=== PATIENT | male | born 1940 | race Caucasian/White ===

== ENCOUNTER 2023-01-06 06:36 | Day surgery (SDC) | payer MEDICARE, SELFPAY ==
[2022-12-26 14:10] VITALS: BMI 25.6
--- NOTE | 2022-12-27 08:14 | MHC.SHP ---
Pre-Procedural Eval Section A Date of Service: 12/27/22 The patient is an INPATIENT: No Changes since office visit: No Cold of Flu in the past 2 weeks, No New Medical Problems, No Changes in Medication and No Patient answered all questions The History & Physical has been completed within 30 days and I have reviewed it.: Yes Section B Chief Complaint: Age-related nuclear cataract, left eye Allergies: Allergies Allergy/AdvReac Type Severity Reaction Status Date / Time acetaminophen Allergy Unknown nausea and Verified 11/14/17 00:00 [Tylenol-Codeine #3] vomiting codeine [Tylenol-Codeine #3] Allergy Unknown nausea and Verified 11/14/17 00:00 vomiting Plan Diagnosis/Plan: Unchanged I have reviewed the history and physical and performed a pertinent physical examination on my patient. No changes have occurred unless specified. Time Spent With Patient Time: Total time managing care of this patient today ____ minutes.
[2022-12-31 09:08] VITALS: BMI 25.4
--- NOTE | 2023-01-02 12:19 | HO.ANESPROP2 ---
Documented by User: Katerine Rhodes NP 01/02/23 12:19 HPI - Anesthesia Eval Consult details Narrative: 82yo M for Left Cataract Extraction IOL Insertion No previous cataract PMFSH Past Medical History Medical History HTN (hypertension) Osteoarthritis Skin cancer Surgical History Surgical History H/O hernia repair Hx of arthroplasty Hx of carpal tunnel repair Hx of elbow surgery Hx of total knee replacement Social History Social History Are you a primary intensive care unit registered nurse to a significant other at home: No Do you presently have visiting nurse or other home services: No Patient Tobacco Use Status: Never used Tobacco Use of substances other than those prescribed or required for medical reasons: No Have you been hit, kicked, punched, or otherwise hurt by someone within the past year? If so, by whom?: No Advance Directives: No Advance Directives Information Provided: Yes Advance Directives on File: No Recently lost weight without trying: No Nutrition Risks: No Nutritional Risk Meds Allergies Allergy/AdvReac Type Severity Reaction Status Date / Time acetaminophen Allergy Unknown nausea and Verified 11/14/17 00:00 [Tylenol-Codeine #3] vomiting codeine [Tylenol-Codeine #3] Allergy Unknown nausea and Verified 11/14/17 00:00 vomiting Iathozv-CZZ-ZvI Reductase Allergy Rash Verified 12/31/22 08:42 Inhibitor Home Medications Medication Instructions Recorded Confirmed Last Taken Type celecoxib 200 mg capsule 200 mg PO DAILY 12/31/22 12/31/22 Unknown History cholecalciferol (vitamin D3) 25 50 mcg PO DAILY 12/31/22 12/31/22 Unknown History mcg (1,000 unit) capsule (Vitamin D3) lisinopril 20 mg tablet 20 mg PO BEDTIME 12/31/22 12/31/22 Unknown History Exam Exam Date and Time: January 02, 2023 1219 Height,Weight and Vital Signs: Height 5 ft 11.5 in Weight 83.915 kg Assessment and Plan Assessment Anesthesia Assessment: Chart Reviewed Documented by User: Mile Shelby MD 01/06/23 08:49 [facility] Past Medical History Medical History HTN (hypertension) Osteoarthritis Skin cancer Surgical History Surgical History H/O hernia repair Hx of arthroplasty Hx of carpal tunnel repair Hx of elbow surgery Hx of total knee replacement History of Problems with Anesthesia: No Social History Social History Are you a primary intensive care unit registered nurse to a significant other at home: No Do you presently have visiting nurse or other home services: No Patient Tobacco Use Status: Never used Tobacco Use of substances other than those prescribed or required for medical reasons: No Have you been hit, kicked, punched, or otherwise hurt by someone within the past year? If so, by whom?: No Advance Directives: No Advance Directives Information Provided: Yes Advance Directives on File: No Recently lost weight without trying: No Nutrition Risks: No Nutritional Risk Meds Allergies Allergy/AdvReac Type Severity Reaction Status Date / Time acetaminophen Allergy Unknown nausea and Verified 11/14/17 00:00 [Tylenol-Codeine #3] vomiting codeine [Tylenol-Codeine #3] Allergy Unknown nausea and Verified 11/14/17 00:00 vomiting Cmlalya-NHD-KaI Reductase Allergy Rash Verified 12/31/22 08:42 Inhibitor Home Medications Medication Instructions Recorded Confirmed Last Taken Type celecoxib 200 mg capsule 200 mg PO DAILY 12/31/22 12/31/22 Unknown History cholecalciferol (vitamin D3) 25 50 mcg PO DAILY 12/31/22 12/31/22 Unknown History mcg (1,000 unit) capsule (Vitamin D3) lisinopril 20 mg tablet 20 mg PO BEDTIME 12/31/22 12/31/22 Unknown History Exam Airway Mallampati Class: III TM Dist: >3cm Neck ROM: Limited Loose/Missing/Broken Teeth: No Heart: RRR Lungs: CTA Assessment and Plan Assessment Anesthesia Assessment: Anesthesia Plan Discussed Final Anesthetic Review History of Problems with Anesthesia: No NPO: Yes ASA Class: II Final Preanesthetic Review: Meds/Allgs Chart Reviewed, Consent Obtained/Reviewed and Anes Risks/Benef Reviewed Patient Risk: Low Procedure Risk: Low Anesthetic Plan Anesthetic Plan: MAC: Disposition: Standard PACU
[2023-01-06 07:39] VITALS: BP 177/95; PULSE 74; RESP 16; TEMP 36.3; O2SAT 97
[2023-01-06] MEDS: Tetracaine HCl/PF 0.5% Oph Sol 4 ML DROPS 1 DROP EYE-LEFT (07:50)
[2023-01-06] MEDS: Lactated Ringers 500 ML 50 ML IV (07:50)
[2023-01-06] MEDS: Tropicamide 1 % Ophth Sol 3 ML BTL 1 DROP EYE-LEFT ×3 (07:51→07:58)
[2023-01-06] MEDS: Cyclopentolate 1 % Ophth Sol 2 ML DRPBTL 1 DROP EYE-LEFT ×3 (07:52→07:59)
[2023-01-06] MEDS: Ketorolac Tromethamine 0.5% Op 5 ML DROPS 1 DROP EYE-LEFT ×3 (07:52→08:00)
[2023-01-06] MEDS: Phenylephrine HCL 2.5% Oph SoL 2 ML BOTTLE 1 DROP EYE-LEFT ×3 (07:53→08:01)
--- NOTE | 2023-01-06 09:01 | HO.PNOPHT ---
Ophthalmology Procedure Procedure Date of Service: 01/06/23 Ophthalmology Viscoelastic: Healjanis Duet Dual Pack Pro Ophthalmology Lenses: TECARSEN [id number] (24) Procedure Notes: PREOPERATIVE DIAGNOSIS: Decreased visual acuity left eye secondary to cataract POSTOPERATIVE DIAGNOSIS: Same PROCEDURE: Left cataract extraction with intraocular lens insertion SURGEON: Clinton Blanchard M.D. ANESTHESIA: Topical/MAC ESTIMATED BLOOD LOSS: None COMPLICATIONS: None After obtaining informed consent, the patient was brought to the operation room suite and placed in the supine position. After adequate sedation per anesthesia, topical drops of Tetracaine were given to the left eye. The eye was then prepped and draped in the usual sterile fashion. The operating room microscope was then positioned over the operative eye and a lid speculum placed. A paracentesis was created. Viscoelastic was then instilled into the anterior chamber. A three plane incision was then created temporally, utilizing a 2.85 mm keratome. Capsulotomy forceps were then utilized to create a circular tear capsulotomy. Hydrodissection and hydrodelineation were carried out until adequate mobilization of the nucleus occurred. Phacoemulsification was then utilized to remove the dense central nucleus followed by removal of the cortical material utilizing the automated aspiration irrigation unit. Viscoat elastic was instilled into the posterior capsular bag followed by placement of a posterior chamber intraocular lens without difficulty. The residual Viscoat elastic was then removed utilizing the automated IA machine. The wound was check and found to be watertight. The patient tolerated the procedure well and the lid speculum was removed. Intracameral injection of Vigamox 0.1 mL followed by a subtenon injection of Kenalog-40 0.2 mL were administered. The patient will be seen in the a.m.
[2023-01-06 09:23] VITALS: BP 170/87; PULSE 69; RESP 16; TEMP 36.2; O2SAT 97
== END 2023-01-06 09:40 | disposition home or self-care (01) ==
PROVIDERS: PCP Nurse Practitioner Family; Visit Provider Ophthalmology
PROC: (CPT 66985; principal; 2023-01-06 09:50)
DX: H25.12 Age-related nuclear cataract, left eye (principal); H52.4 Presbyopia; H04.123 Dry eye syndrome of bilateral lacrimal glands; H18.413 Arcus senilis, bilateral; H57.02 Anisocoria; I10 Essential (primary) hypertension; Z79.899 Other long term (current) drug therapy; Z88.8 Allergy status to other drugs, medicaments and biological substances; Z96.653 Presence of artificial knee joint, bilateral
CPT/HCPCS: 66984; J2250; J3010; J3301; V2632

== ENCOUNTER 2023-01-13 06:56 | Day surgery (SDC) | payer MEDICARE, SELFPAY ==
[2022-12-26 14:10] VITALS: BMI 25.6
[2022-12-31 09:13] VITALS: BMI 25.4
--- NOTE | 2023-01-10 08:05 | MHC.SHP ---
Pre-Procedural Eval Section A Date of Service: 01/10/23 The patient is an INPATIENT: No Changes since office visit: No Cold of Flu in the past 2 weeks, No New Medical Problems, No Changes in Medication and No Patient answered all questions The History & Physical has been completed within 30 days and I have reviewed it.: Yes Section B Chief Complaint: Age-related nuclear cataract, right eye Allergies: Allergies Allergy/AdvReac Type Severity Reaction Status Date / Time acetaminophen Allergy Unknown nausea and Verified 11/14/17 00:00 [Tylenol-Codeine #3] vomiting codeine [Tylenol-Codeine #3] Allergy Unknown nausea and Verified 11/14/17 00:00 vomiting Dhvaigb-YNM-NsL Reductase Allergy Rash Verified 12/31/22 08:42 Inhibitor Plan Diagnosis/Plan: Unchanged I have reviewed the history and physical and performed a pertinent physical examination on my patient. No changes have occurred unless specified. Time Spent With Patient Time: Total time managing care of this patient today ____ minutes.
--- NOTE | 2023-01-10 09:13 | HO.ANESPROP2 ---
Documented by User: Katerine Rhodes NP 01/10/23 09:14 HPI - Anesthesia Eval Consult details Narrative: 82yo M for Right Cataract Extraction IOL Insertion Medically optimized Left eye 01/06/23 with TIVA: Fent 50, Midaz 0.5 PMFSH Past Medical History Medical History HTN (hypertension) Osteoarthritis Skin cancer Surgical History Surgical History H/O hernia repair Hx of arthroplasty Hx of carpal tunnel repair Hx of elbow surgery Hx of total knee replacement History of Problems with Anesthesia: No Social History Social History Are you a primary progressive care nurse to a significant other at home: No Do you presently have visiting nurse or other home services: No Patient Tobacco Use Status: Never used Tobacco Use of substances other than those prescribed or required for medical reasons: No Have you been hit, kicked, punched, or otherwise hurt by someone within the past year? If so, by whom?: No Advance Directives: No Advance Directives Information Provided: Yes Advance Directives on File: No Recently lost weight without trying: No Eating poorly because of decreased appetite: No Nutrition Risks: No Nutritional Risk Poor oral hygiene: No Meds Allergies Allergy/AdvReac Type Severity Reaction Status Date / Time acetaminophen Allergy Unknown nausea and Verified 11/14/17 00:00 [Tylenol-Codeine #3] vomiting codeine [Tylenol-Codeine #3] Allergy Unknown nausea and Verified 11/14/17 00:00 vomiting Jeojtkh-JXU-PsY Reductase Allergy Rash Verified 12/31/22 08:42 Inhibitor Home Medications Medication Instructions Recorded Confirmed Last Taken Type celecoxib 200 mg capsule 200 mg PO DAILY 12/31/22 12/31/22 Unknown History cholecalciferol (vitamin D3) 25 50 mcg PO DAILY 12/31/22 12/31/22 Unknown History mcg (1,000 unit) capsule (Vitamin D3) lisinopril 20 mg tablet 20 mg PO BEDTIME 12/31/22 12/31/22 Unknown History Exam Exam Date and Time: January 10, 202313 Height,Weight and Vital Signs: Height 5 ft 11.5 in Weight 83.915 kg Assessment and Plan Assessment Anesthesia Assessment: Chart Reviewed Final Anesthetic Review History of Problems with Anesthesia: No Documented by User: Farhan Patel MD 01/13/23 16:02 PMF Past Medical History Medical History HTN (hypertension) Osteoarthritis Skin cancer Functional capacity: independent ambulation Family History Family history of problems with anesthesia: No Surgical History Surgical History H/O hernia repair Hx of arthroplasty Hx of carpal tunnel repair Hx of elbow surgery Hx of total knee replacement Social History Social History Are you a primary progressive care nurse to a significant other at home: No Do you presently have visiting nurse or other home services: No Patient Tobacco Use Status: Never used Tobacco Use of substances other than those prescribed or required for medical reasons: No Have you been hit, kicked, punched, or otherwise hurt by someone within the past year? If so, by whom?: No Advance Directives: No Advance Directives Information Provided: Yes Advance Directives on File: No Recently lost weight without trying: No Eating poorly because of decreased appetite: No Nutrition Risks: No Nutritional Risk Poor oral hygiene: No Meds Allergies Allergy/AdvReac Type Severity Reaction Status Date / Time acetaminophen Allergy Unknown nausea and Verified 11/14/17 00:00 [Tylenol-Codeine #3] vomiting codeine [Tylenol-Codeine #3] Allergy Unknown nausea and Verified 11/14/17 00:00 vomiting Fenltbr-ZJE-DgN Reductase Allergy Rash Verified 12/31/22 08:42 Inhibitor Home Medications Medication Instructions Recorded Confirmed Last Taken Type celecoxib 200 mg capsule 200 mg PO DAILY 12/31/22 12/31/22 Unknown History cholecalciferol (vitamin D3) 25 50 mcg PO DAILY 12/31/22 12/31/22 Unknown History mcg (1,000 unit) capsule (Vitamin D3) lisinopril 20 mg tablet 20 mg PO BEDTIME 12/31/22 12/31/22 Unknown History Exam Airway Mallampati Class: III Loose/Missing/Broken Teeth: Yes (upper front damaged) Assessment and Plan Assessment Anesthesia Assessment: Anesthesia Plan Discussed Final Anesthetic Review Family History of Problems with Anesthesia: No NPO: Yes ASA Class: II Final Preanesthetic Review: Meds/Allgs Chart Reviewed, Consent Obtained/Reviewed and Anes Risks/Benef Reviewed Patient Risk: Intermediate Procedure Risk: Intermediate Anesthetic Plan Anesthetic Plan: MAC: Disposition: Standard PACU
[2023-01-13 07:40] VITALS: BP 165/90; PULSE 75; RESP 16; TEMP 36.4; O2SAT 97
[2023-01-13] MEDS: Tetracaine HCl/PF 0.5% Oph Sol 4 ML DROPS 1 DROP EYE-RIGHT (07:43)
[2023-01-13] MEDS: Lactated Ringers 500 ML 50 ML IV (07:43)
[2023-01-13] MEDS: Cyclopentolate 1 % Ophth Sol 2 ML DRPBTL 1 DROP EYE-RIGHT ×3 (07:44→07:50)
[2023-01-13] MEDS: Tropicamide 1 % Ophth Sol 3 ML BTL 1 DROP EYE-RIGHT ×3 (07:45→07:51)
[2023-01-13] MEDS: Ketorolac Tromethamine 0.5% Op 5 ML DROPS 1 DROP EYE-RIGHT ×3 (07:46→07:52)
[2023-01-13] MEDS: Phenylephrine HCL 2.5% Oph SoL 2 ML BOTTLE 1 DROP EYE-RIGHT ×3 (07:47→07:52)
--- NOTE | 2023-01-13 08:41 | HO.PNOPHT ---
Ophthalmology Procedure Procedure Date of Service: 01/13/23 Ophthalmology Viscoelastic: Healjanis Duet Dual Pack Pro Ophthalmology Lenses: TECNIS [id number] (21.5) Procedure Notes: PREOPERATIVE DIAGNOSIS: Decreased visual acuity right eye secondary to cataract POSTOPERATIVE DIAGNOSIS: Same PROCEDURE: Right cataract extraction with intraocular lens insertion SURGEON: Clinton Blanchard M.D. ANESTHESIA: Topical/MAC ESTIMATED BLOOD LOSS: None COMPLICATIONS: None After obtaining informed consent, the patient was brought to the operating room suite and placed in the supine position. After adequate sedation per anesthesia, topical drops of Tetracaine were given to the right eye. The eye was then prepped and draped in the usual sterile fashion. The operating room microscope was then positioned over the operative eye and a lid speculum placed. A paracentesis was created. Viscoelastic was then instilled into the anterior chamber. A three plane incision was then created temporally, utilizing a 2.85 mm keratome. Capsulotomy forceps were then utilized to create a circular tear capsulotomy. Hydrodissection and hydrodelineation were carried out until adequate mobilization of the nucleus occurred. Phacoemulsification was then utilized to remove the dense central nucleus followed by removal of the cortical material utilizing the automated aspiration irrigation unit. Viscoelastic was instilled into the posterior capsular bag followed by placement of a posterior chamber intraocular lens without difficulty. The residual Viscoelastic was then removed utilizing the automated IA machine. The wound was checked and found to be watertight. The patient tolerated the procedure well and the lid speculum was removed. Intracameral injection of Vigamox 0.1 mL followed by a subtenon injection of Kenalog-40 0.2 mL were administered. The patient will be seen in the a.m.
[2023-01-13 09:02] VITALS: BP 161/84; PULSE 60; RESP 12; TEMP 36.8; O2SAT 100
== END 2023-01-13 09:16 | disposition home or self-care (01) ==
PROVIDERS: PCP Nurse Practitioner Family; Visit Provider Ophthalmology
PROC: (CPT 66985; principal; 2023-01-13 08:50)
DX: H25.11 Age-related nuclear cataract, right eye (principal); H52.4 Presbyopia; H04.123 Dry eye syndrome of bilateral lacrimal glands; H18.413 Arcus senilis, bilateral; H57.02 Anisocoria; I10 Essential (primary) hypertension; E78.00 Pure hypercholesterolemia, unspecified; Z79.899 Other long term (current) drug therapy; Z88.5 Allergy status to narcotic agent; Z88.8 Allergy status to other drugs, medicaments and biological substances
CPT/HCPCS: 66984; J3010; J3301; V2632